=== PATIENT | female | born 1970 | race African-American/Black ===

== ENCOUNTER 2016-10-22 08:45 | Emergency (ER) | payer OTHER ==
[~2016-10-22] VITALS: Ht 167.6 cm; Wt 81.7 kg
--- NOTE | ~2016-10-22 | EKG ---
[place] [address] [facility] [place] [address] ELECTROCARDIOGRAM REPORT Name: SIDDHARTH LORA Room #: DEP [facility]#: [id number] Admission: 10/22/16 Attend Phys: Discharge: 10/22/16 Date of : 70 Report #: [id number] THIS REPORT FOR: //name// [facility] ED Test Date: 2016-10-22 Test Time: 09:46:41 Pat Name: SIDDHARTH LORA Department: Room: Gender: F Cloth Finishing Range Tender: Blue HINOJOSA : 1970 Requested By: Ramesh Leong Order Number: [id number] MD: Hal Barker Measurements Intervals [place] Rate: 70 P: 62 RI: 200 QRS: 21 QRSD: 93 T: 37 QT: 447 QTc: 483 Interpretive Statements Sinus rhythm Consider left ventricular hypertrophy No previous ECG available for comparison Electronically Signed On 10-22-2016 14:57:56 ASSEMBLY MANAGER by Hal Barker [email or web address] <ELECTRONICALLY SIGNED> By: Hal Barker MD 10/22/16 1457 0946 5 Hal Barker MD /LIZ
[~2016-10-22 08:45] MED LIST: ATORVASTATIN; BENTYL10 MG PO; CITRATE OF MAG296 ML PO; CLONIDINE HCL0.2 M2 GT; COLACE100 MG PO; FLEXERIL PO; FUROSEMIDE; HYDROCHLOROTHIA25 M1 PO; IBUPROFEN 600600 M1 PO; IBUPROFEN 800800 MG PO; LEVOTHROID300 MCG PO; MEDROLDOSEPACK PO; MIRALAX17 GM PO; NAPROSYN500 MG PO; NORCO 5-325 TA1 EACH PO; VICODIN 5-5001 EACH PO
[2016-10-22 09:35] LABS: ABSOLUTE NEUTROPHILS 3.3 thou/uL (1.4-8.2); BASOPHILS 1.1 % (0.0-2.0); EOSINOPHILS 2.9 % (0.0-3.0); HEMATOCRIT 39.1 % (37.0-47.0); HEMOGLOBIN 13.8 gm/dL (12.0-15.0); LYMPHOCYTES 33.5 % (24.0-44.0); MCH 32.6 pg (26.0-34.0); MCHC 35.3 % (28.0-37.0); MCV 92.4 fL (80.0-100.0); PLATELET COUNT 193 thou/uL (150-400); POLYS 51.5 % (36.0-66.0); RBC 4.23 mil/uL (4.20-5.00); RDW 14.4 % (10.5-14.5); WBC 6.4 thou/uL (4.0-11.0)
[2016-10-22 09:36] LABS: MANUAL DIFF NO
[2016-10-22 09:56] LABS: CALCIUM 9.1 mg/dL (8.5-10.1); CREATININE 0.9 mg/dL (0.6-1.3)
[2016-10-22 10:08] LABS: URINE BILIRUBIN NEGATIVE (Negative); URINE BLOOD 1+ (Negative); URINE COLOR YELLOW; URINE GLUCOSE-RANDOM* NEGATIVE (Negative); URINE KETONES NEGATIVE (Negative); URINE NITRITE NEGATIVE (Negative); URINE PROTEIN (DIPSTICK) NEGATIVE (Negative); URINE SPECIFIC GRAVITY 1.015 (1.003-1.035); URINE UROBILINOGEN 0.2 E.U./dl (0.2-1.0)
[2016-10-22 10:32] LABS: BACTERIA 1-9 Few /HPF (None Seen); CASTS None Seen /LPF (None Seen); CRYSTALS None Seen /LPF (None Seen); SQUAMOUS 0-3 Few /LPF (0-3); URINE RBC 0-2 Rare /HPF (0-2); URINE WBC 0-5 Rare /HPF (0-5)
[2016-10-22] MEDS ORDERED: SYNTHROID300 MCG PO (11:15)
[2016-10-22] MEDS ORDERED: LASIX 20 MG TAB20 MG PO (11:15)
[2016-10-22] MEDS ORDERED: COLACE100 MG PO (11:15)
[2016-10-22] MEDS ORDERED: HYDROCHLOROTH12.5 M1 PO (11:15)
[2016-10-22] MEDS ORDERED: NAPROSYN500 MG PO (11:15)
[2016-10-22 11:36] VITALS: BP 178/100
[2016-11-28] MEDS ORDERED: NOHOMEMEDICATIONS (14:52)
[2016-11-30] MEDS ORDERED: COREG6.25 MG PO (10:08)
[2016-11-30] MEDS ORDERED: KLOR-CON M2020 MEQ PO (10:08)
[2016-11-30] MEDS ORDERED: EFFIENT10 MG PO (10:08)
[2016-11-30] MEDS ORDERED: LIPITOR40 MG PO (10:08)
[2016-11-30] MEDS ORDERED: BAYER CHEWABLE81 MG PO (10:08)
[2016-11-30] MEDS ORDERED: COZAAR 50 MG TA50 MG PO (10:08)
[2016-11-30] MEDS ORDERED: CARVEDILOL12.5 MG PO (10:16)
[2016-12-05] MEDS ORDERED: TRAMADOL 50 MG50 MG PO (21:15)
[2016-12-05] MEDS ORDERED: POTASSIUM20 PO (21:15)
[2016-12-05] MEDS ORDERED: PRILOSEC 20 MG20 MG PO (21:15)
[2016-12-05] MEDS ORDERED: ZOFRAN ODT4 MG DISSOLVE (21:15)
[2016-12-08] MEDS ORDERED: PHENERGAN 25 MG25 M1 PO (17:37)
[2016-12-08] MEDS ORDERED: PROMS25 WY RECTAL (17:37)
[2016-12-08] MEDS ORDERED: PROTONIX40 MG PO (17:37)
== END 2016-10-22 11:40 | disposition home or self-care (01) ==
LOC: ER 08:45
PROVIDERS: Emergency Medicine
DX: R10.9 Unspecified abdominal pain (principal); G89.29 Other chronic pain; E03.9 Hypothyroidism, unspecified; I11.0 Hypertensive heart disease with heart failure; I50.30 Unspecified diastolic (congestive) heart failure; M19.90 Unspecified osteoarthritis, unspecified site; Z86.73 Personal history of transient ischemic attack (TIA), and cerebral infarction without residual deficits; Z90.710 Acquired absence of both cervix and uterus

== ENCOUNTER 2017-08-13 05:17 | Day surgery (SDC) | payer OTHER ==
[~2017-08-13] VITALS: Ht 170.2 cm; Wt 82.1 kg
--- NOTE | ~2017-08-13 | O ---
[facility] [place] [address] OPERATIVE REPORT Name: SIDDHARTH LORA Room #: 412-P [facility]..#: [id number] Admission: 08/13/17 Attend Phys: uRben Veliz MD Discharge: Date of : 70 Report #: [id number] THIS REPORT FOR: //name// CC: [facility] physician/PCP Wendi Veliz DATE OF SERVICE: 08/13/[address] Ruben Veliz and Dr. Wendi Shaffer. PREOPERATIVE DIAGNOSES: Cholelithiasis, cholecystitis, biliary colic. POSTOPERATIVE DIAGNOSES: Cholelithiasis, cholecystitis, biliary colic. PROCEDURE: Laparoscopic cholecystectomy. SURGEON: Ruben Veliz MD. MOISTURE MACHINE TENDER: Jesusita Marroquin RN. ANESTHESIA: General. DESCRIPTION OF PROCEDURE: The patient was brought to the operating room and placed on operative table in the supine position. Sequential compression devices were in place for DVT prophylaxis. She received an appropriate preoperative dose of Mefoxin. The patient underwent general endotracheal anesthesia and the abdomen was then prepped and draped in a sterile fashion. Skin and subcutaneous tissue around the umbilicus was then infiltrated with 0.5% Marcaine. Infraumbilical skin incision was then performed using #11 scalpel blade. Hemostasis obtained using electrocautery. Dissection was carried down through subcutaneous tissue of the fascia, which was then grasped between 2 Tim clamps and incised with the curved Hamilton scissors. Peritoneum was entered and pursestring suture of 0 Vicryl was then placed in the fascia. A 12-mm disposable Denilson port was inserted through the opening and held into place with the balloon port and the pursestring suture. Pneumoperitoneum obtained to a level of 10-15 mmHg. Laparoscope was inserted through this port and exploration was performed, which revealed numerous adhesions overlying the dome of the liver. These adhesions were carefully lysed using the laparoscopic scissors as well as the hook electrocautery. After lysing numerous adhesions over the liver, the gallbladder was then grasped and retracted superiorly and adhesions to the gallbladder were carefully dissected free using the [place] dissector. The cystic duct and artery were then dissected free. Cystic artery was then doubly clipped on each side and divided with the scissors. The cystic common bile duct junction was clearly identified and the cystic duct was then triply clipped on the common bile duct side and doubly clipped on the gallbladder side [address] [address] OPERATIVE REPORT Name: SIDDHARTH LORA Room #: 412-P [facility]#: [id number] Admission: 08/13/17 Attend Phys: Ruben Veliz MD Discharge: Date of : 70 Report #: [id number] and divided with the scissors. Gallbladder was then dissected free from the bed using the hook electrocautery. Prior to completing the dissection, the gallbladder was retracted superiorly and the bed inspected for hemostasis, which was obtained using electrocautery and found to be intact. Gallbladder was then transected and brought out through the periumbilical port and sent that specimen to pathology. The port was then returned to the abdomen. The area was then copiously irrigated with warm saline solution, which was suctioned free and hemostasis was checked and found to be intact. The ports were all removed under direct visualization, hemostasis intact at each port site. Pneumoperitoneum was released and the periumbilical port was also removed under direct visualization. Hemostasis intact at that port site as well. The periumbilical fascia was then closed using the 0 Vicryl pursestring suture. The upper midline fascia was then closed using a isseed-if-veefb 0 Vicryl suture. Skin was then closed using interrupted vertical mattress 5-0 nylon sutures and the wound was dressed with Band-Aids. The patient was then awakened from the general endotracheal anesthesia, extubated, and taken to recovery room in good condition. Estimated blood loss was approximately 5-10 mL and the patient tolerated procedure well. All sponge, lap and instrument counts correct times 2. <ELECTRONICALLY SIGNED> By: Ruben Veliz MD 08/13/17 1326 1002 1023 Ruben Veliz MD /nt
--- NOTE | ~2017-08-13 | S ---
[facility] [place] [address] SURGICAL PATH RPT PROCEDURE Name: TAMMY LORA Room #: DEP [facility] M.R.#: [id number] Admission: 08/13/17 Date of : 70 Discharge: 08/13/17 Report #: [id number] Path Case #: [id number] PATHOLOGY REPORT COLLECTION DATE: 08/13/2017 RECEIVED DATE: 08/13/2017 SUBMITTING PHYS: Dr. Ruben Veliz OTHER PHYS: SPECIMEN(S) RECEIVED: A.Gallbladder * * * * * * * * * * * * FINAL DIAGNOSIS: Gallbladder, cholecystectomy: - Mild chronic cholecystitis. - Cholelithiasis. (IUV:pit; 08/14/2017) PATHOLOGIST: Oliva Urrutia M.D. REPORT ELECTRONICALLY SIGNED BY: Oliva Urrutia M.D. DATE/TIME: 08/14/2017 15:37 * * * * * * * * * * * * GROSS PATHOLOGY: Received in formalin labeled "Tammy Lora gallbladder," is a 7.9 x 2.4 x 1.0 cm, previously opened gallbladder with light maki to bluish, wrinkled, and slightly vascular serosal surfaces. Opening the gallbladder reveals light green, grainy mucosa and an average wall thickness of 0.2 cm. Calculi are present, measuring 0.4-0.7 cm in maximum dimension, possessing a dark black and granular appearance, and feeling friable to the touch. No masses are noted grossly. Auto Finance Sales Rep sections from the body and fundus are submitted along with the proximal margin in cassette A1. (TSD; 08/13/2017) CLINICAL HISTORY: Gallstones INITIAL CPT CODE(S): A; 19207 Professional services performed by [facility] at [facility] [address] , [place] [address] [facility] [address] [place] [address] SURGICAL PATH RPT PROCEDURE Name: TAMMY LORA Room #: DEP [facility].#: [id number] Admission: 08/13/17 Date of : 70 Discharge: 08/13/17 Report #: [id number] Path Case #: [id number] Technical services performed by [facility] at [address] [place] [address], [facility] [address] [address]. [facility] [address] [place] [address] PHONE: [phone] DIRECTOR: Landen Carroll M.D. * * * END OF REPORT * * *
[~2017-08-13 05:17] MED LIST changes: +ACETAMINOPHEN-1 EAC1 PO; +ASPIR 8181 MG PO; +BAYER CHEWABLE81 MG PO; +CARVEDILOL12.5 MG PO; +CELEXA40 MG PO; +COREG6.25 MG PO; +COZAAR 50 MG TA50 MG PO; +DUONEB 2.5-0.5 M3 ML INH; +EFFIENT10 MG PO; +FLONASE 0.05%50 MCG NASAL; +GABAPENTIN800 M1 PO; +HYDROCHLOROTH12.5 M1 PO; +KLOR-CON M2020 MEQ PO; +LASIX 20 MG TAB20 MG PO; +LINZESS145 MCG PO; +LIPITOR 20 MG T20 M1 PO; +LIPITOR40 MG PO; +LOSARTAN-HCTZ1 EACH PO; +MIRALAX17 G1 PO; +MOBIC15 MG PO; +NOHOMEMEDICATIONS; +NORVASC5 MG PO; +OMEPRAZOLE 20 M20 MG PO; +PHENERGAN 25 MG25 M1 PO; +PLAVIX 75 MG TA75 M1 PO; +POTASSIUM20 PO; +PRILOSEC 20 MG20 MG PO; +PROMS25 WY RECTAL; +PROTONIX40 MG PO; +SYNTHROID25 MCG PO; +SYNTHROID300 MCG PO; +TRAMADOL 50 MG50 MG PO; +VENTOLIN HFA 1818 GM INH; +XANAX 0.5 MG0.5 MG PO; +ZOFRAN ODT4 MG DISSOLVE; +ZYRTEC10 M5 PO
[2017-08-13 07:19] LABS: CALCIUM 9.4 mg/dL (8.5-10.1); CREATININE 0.9 mg/dL (0.6-1.0); POTASSIUM 3.5 mmol/L (3.5-5.1)
[2017-08-13 08:25] VITALS: BP 160/97
[2017-08-13] MEDS ORDERED: HYDROCODON-ACE1 EAC7 PO (10:09)
[2017-08-13 12:00] VITALS: BP 155/91
[2017-08-13 12:11] VITALS: BP 160/97
[2017-08-13 12:30] VITALS: BP 155/89
[2017-08-13 14:00] VITALS: BP 149/83
== END 2017-08-13 16:04 | disposition home or self-care (01) ==
LOC: OR 05:17 → 4N 11:46 → OR 13:40 → ENTRNSPT 15:45 → EDTRNSPTSTS 15:48 → OR 16:04
PROVIDERS: Student in an Organized Health Care Education/Training Program
DX: K80.64 Calculus of gallbladder and bile duct with chronic cholecystitis without obstruction (principal); I11.0 Hypertensive heart disease with heart failure; I50.9 Heart failure, unspecified; I25.2 Old myocardial infarction; J44.9 Chronic obstructive pulmonary disease, unspecified; E78.00 Pure hypercholesterolemia, unspecified; E03.9 Hypothyroidism, unspecified; M19.90 Unspecified osteoarthritis, unspecified site; K21.9 Gastro-esophageal reflux disease without esophagitis; F32.89 Other specified depressive episodes; F41.8 Other specified anxiety disorders; Z95.5 Presence of coronary angioplasty implant and graft; Z90.710 Acquired absence of both cervix and uterus; Z98.890 Other specified postprocedural states; Z86.73 Personal history of transient ischemic attack (TIA), and cerebral infarction without residual deficits; Z88.6 Allergy status to analgesic agent; Z79.899 Other long term (current) drug therapy; Z79.82 Long term (current) use of aspirin
CPT/HCPCS: 10091; 50010; 50101; 50411; 50555; 50558; 51474; 51489; 52266; 53314; 56462; 56524; 56528; 62110; 62900; 70005

== ENCOUNTER 2018-01-12 01:34 | Inpatient (IN) | payer OTHER ==
[2018-01-12] VITALS (13 sets, daily range): BP systolic 134–186; BP diastolic 85–124
[~2018-01-12] VITALS: Ht 167.6 cm; Wt 79.7 kg
--- NOTE | ~2018-01-12 | EKG ---
[place] [address] [facility] [place] [address] ELECTROCARDIOGRAM REPORT Name: SIDDHARTH LORA Room #: 205- ADM IN M.R.#: [id number] Admission: 01/12/18 Attend Phys: Earle Cortes MD Discharge: Date of : 70 Report #: [id number] THIS REPORT FOR: //name// [facility] Test Date: 2018-01-12 Test Time: 05:48:55 Pat Name: SIDDHARTH LORA Department: Room: 205 Gender: F Wire Mesh Filter Fabricator: ANIL : 1970 Requested By: Sherin Naranjo Order Number: [id number] MD: Ish Ryder Measurements Intervals [place] Rate: 71 P: 66 TN: 204 QRS: 17 QRSD: 120 T: 14 QT: 423 QTc: 460 Interpretive Statements Sinus rhythm Borderline prolonged [place] interval Nonspecific ST segment abnormality Baseline wander in lead(s) V2 Compared to ECG 12/08/2016 16:36:08 No significant change was found Electronically Signed On 01-12-2018 7:59:12 CDT by Ish Ryder [email or web address] <ELECTRONICALLY SIGNED> By: Ish Ryder MD, [facility] 01/12/18 0759 0548 0548 Ish Ryder MD, [facility] /EPI
--- NOTE | ~2018-01-12 | CATHLAB ---
[facility] [place] [address] INVASIVE PROCEDURE REPORT Name: SIDDHARTH LORA Room #: 205-P ADM IN .R.#: [id number] Admission: 01/12/18 Attend Phys: Earle Cortes MD Discharge: Date of : 70 Date of Service: 01/12/18 1430 Report #: [id number] THIS REPORT FOR: //name// APPROVED REPORT Study performed: 01/12/2018 10:52:45 Patient Details Patient Status: In-Patient Room #: The patient is a 47 year-old female Event Personnel Boris Alvarez Sausage Inspector, Kobe Santacruz RN, Shelly Torres RTR, Sheila Haines David Monitor Procedures Performed left heart cath Indication Dyspnea, Cardiomyopathy, Chest pain Risk Factors Hypercholesterolemia, Coronary Artery DiseaseHypertension Previous Procedures/Diagnoses Previous PCI, Previous CHF Procedure Narrative A 4 fr sheath sheath was inserted into the . Coronary angiography was performed using coronary diagnostic catheters. The right coronary system was accessed and visualized with a 3DRC catheter. The left coronary system was accessed and visualized with a JL4 catheter. The left ventricle was accessed and visualized with a PIGTAIL catheter. Left ventricular/Aortic Valve gradient assessed via catheter pullback. Left ventriculogram was performed in 30 degree projection. Hemostasis was obtained with manual pressure following sheath removal without any complications. There was no hematoma. Intraoperative Conscious Sedation Sedation start time: 12.46 Case end Time: 13.02 Fentanyl 50.0 mcg Versed 1.5 mg Fluoro Time: 5.46 minutes Dose: 636 mGy [facility] [address] [place] [address] INVASIVE PROCEDURE REPORT Name: SIDDHARTH LORA [place] Room #: 205-P [facility] IN [facility]#: [id number] Admission: 01/12/18 Attend Phys: Earle Cortes MD Discharge: Date of : 70 Date of Service: 01/12/18 1430 Report #: [id number] Contrast Type and Amount: OMNI 160CC Coronary Angiography The patient's coronary anatomy is right dominant. Diagnostic Cath Left Main Patent vessel, with no flow-limiting lesions. LAD Moderate to large size caliber vessel, traveling down the anterior wall and wrapping around the apex, terminating in the distal inferior wall. There is a stent in the proximal/mid LAD, patent with mild restenosis. Within the mid segment of the LAD there is a mild stenotic lesion, 30%. Diagonal 1 Small-caliber vessel, with moderate disease at the proximal segment. Diagonal 2 Small-caliber vessel, with a moderate stenosis at the proximal segment. Circumflex Moderate size caliber vessel, supplies 2 obtuse marginal arteries. OM1 Patent vessel with mild disease in the proximal segment. OM2 Patent vessel with mild disease in the proximal segment. Right Coronary Dominant vessel with moderate disease in the mid segment, 40%. R PDA Small-caliber vessel, no flow-limiting lesions. RPLV Small-caliber vessel, with mild diffuse disease in the mid segment. Left Ventriculography The left ventricle is mildly dilated in size with decreased contractility. The left ventricular ejection fraction is estimated to be 35%. Hemodynamics The aortic pressure is 171/74 mmHg with a mean of 93 mmHg. The left ventricular pressure is 171/10 mmHg with a mean of mmHg. The left ventricular end diastolic pressure is 36 mmHg. There was no gradient across the aortic valve upon pullback. Conclusion 1. Patent stent in the proximal/mid LAD segment. 2. Right dominant system. 3. Mild to moderate disease as described above. [facility] [address] [place] [address] INVASIVE PROCEDURE REPORT Name: SIDDHARTH LORA Room #: 205-P [facility] IN .R.#: [id number] Admission: 01/12/18 Attend Phys: Earle Cortes MD Discharge: Date of : 70 Date of Service: 01/12/18 1430 Report #: [id number] 4. Nonischemic cardiomyopathy. 4. Recommend medical therapy. <ELECTRONICALLY SIGNED> By: Boris Alvarez MD 01/12/18 1430 143 1430 Boris Alvarez MD /INF
--- NOTE | ~2018-01-12 | EKG ---
[place] [address] [employer] [place] [address] ELECTROCARDIOGRAM REPORT Name: SIDDHARTH LORA Room #: 205-P ADM IN M.R.#: [id number] Admission: 01/12/18 Attend Phys: Earle Cortes MD Discharge: Date of : 70 Report #: [id number] THIS REPORT FOR: //name// [facility] ED Test Date: 2018-01-12 Test Time: 01:41:05 Pat Name: SIDDHARTH LORA Department: Room: 205 Gender: F Hat Body Inspector: [facility] : 1970 Requested By: Amy Hernandez Order Number: [id number] MD: Ish Ryder Measurements Intervals [place] Rate: 69 P: 58 [place]: 216 QRS: 4 QRSD: 83 T: 21 QT: 520 QTc: 557 Interpretive Statements Sinus rhythm Prolonged [place] interval Probable left atrial enlargement LVH with secondary repolarization abnormality Anterior Q waves, possibly due to LVH Prolonged QT interval Compared to ECG 12/08/2016 16:36:08 First degree AV block now present ST and T wave abnormality is less prominent Electronically Signed On 01-12-2018 7:56:37 CDT by Ish Ryder [email or web address] <ELECTRONICALLY SIGNED> By: Ish Ryder MD, [facility] 01/12/18 0756 0141 0141 Ish Ryder MD, [facility] /EPI
--- NOTE | ~2018-01-12 | 2DMMODE ---
[facility] [address] [place] [address] 2 D/M-MODE ECHOCARDIOGRAM Name: SIDDHARTH LORA R Room #: 205-P ADM IN M.R.#: [id number] Admission: 01/12/18 Attend Phys: Earle Cortes MD Discharge: Date of : 70 Date of Service: 01/12/18 1141 Report #: [id number] THIS REPORT FOR: //name// APPROVED REPORT Study performed: 01/12/2018 10:40:39 EXAM: Comprehensive 2D, Doppler, and color-flow Echocardiogram Patient Location: Echo lab Room #: [facility] Status: routine BSA: 1.91 HR: 57 bpm BP: 140/87 mmHg Rhythm: NSR Other Information Study Quality: Good Indications Chest pain, short of breath. Hx: cardiomyopathy, CAD, stent, HTN, HLP 2D Dimensions RVDd: 33.41 mm LVEF(%): 21.20 (>50%) IVSd: 12.04 (7-11mm) LVOT Diam: 19.89 (18-24mm) LVDd: 58.38 mm PWd: 11.57 (7-11mm) Ascending Ao: 29.96 (22-36mm) LVDs: 52.64 (25-40mm) Aortic Root: 29.50 mm Cano's LVEF: 21.20 % Volumes Left Atrial Volume (Systole) Single Plane 4CH: 64.11 mL Single Plane 2CH: 65.53 mL LA ESV Index: 37.00 mL/m2 Aortic Valve AoV Peak Osvaldo.: 1.33 m/s AO Peak Gr.: 7.05 mmHg LVOT Max P.81 mmHg LVOT Max V: 0.84 m/s ALANA Vmax: 1.96 cm2 Mitral Valve E/A Ratio: 1.3 [facility] [employer] [place] [address] 2 D/M-MODE ECHOCARDIOGRAM Name: SIDDHARTH LORA [place] Room #: 205-P [facility] IN M.R.#: [id number] Admission: 01/12/18 Attend Phys: Earle Cortes MD Discharge: Date of : 70 Date of Service: 01/12/18 1141 Report #: [id number] MV Decel. Time: 206.44 ms MV E Max Osvaldo.: 0.77 m/s MV A Osvaldo.: 0.60 m/s MV PHT: 59.87 ms IVRT: 147.64 ms Pulmonary Valve PV Peak Osvaldo.: 0.78 m/s PV Peak Gr.: 2.44 mmHg Pulmonary Vein P Vein S: 0.35 m/s P Vein D: 0.28 m/s P Vein S/D Ratio: 1.25 Tricuspid Valve TR Peak Osvaldo.: 2.01 m/s RAP Estimate: 5.00 mmHg TR Peak Gr.: 16.18 mmHg PA Pressure: 21.00 mmHg Left Ventricle The left ventricle is normal size. Mild concentric left ventricular hypertrophy. Left ventricular systolic function is moderately decreased. LVEF is 35-40%. Moderate diastolic dysfunction is present (pseudonormal filling). Right Ventricle The right ventricle is normal size. Right ventricle is mildly hypokinetic. Atria Left atrium is mildly dilated. The right atrium size is normal. Aortic Valve The aortic valve is normal in structure. Trace aortic regurgitation. There is no aortic valvular stenosis. Mitral Valve The mitral valve is normal in structure. Mild to moderate mitral regurgitation. Tricuspid Valve The tricuspid valve is normal in structure. Mild tricuspid regurgitation. Estimated PAP is 20-25mmHg. Pulmonic Valve [address] [address] 2 D/M-MODE ECHOCARDIOGRAM Name: SIDDHARTH LORA Room #: 205-P [facility] IN .R.#: [id number] Admission: 01/12/18 Attend Phys: Earle Cortes MD Discharge: Date of : 70 Date of Service: 01/12/18 1141 Report #: [id number] The pulmonary valve is normal in structure. Mild pulmonic regurgitation. Great Vessels The aortic root is normal in size. The ascending aorta is normal in size. IVC is normal in size and collapses >50% with inspiration. Pericardium There is no pericardial effusion. <Conclusion> The left ventricle is normal size. Mild concentric left ventricular hypertrophy. Left ventricular systolic function is moderately decreased. Moderate diastolic dysfunction is present (pseudonormal filling). The right ventricle is normal size. Left atrium is mildly dilated. There is no aortic valvular stenosis. Mild to moderate mitral regurgitation. Mild tricuspid regurgitation. Estimated PAP is 20-25mmHg. <ELECTRONICALLY SIGNED> By: Borsi Alvarez MD 01/12/18 1141 1141 1141 Boris Alvarez MD /INF
[~2018-01-12 01:34] MED LIST changes: +HYDROCODON-ACE1 EAC7 PO
[2018-01-12 02:03] LABS: ABSOLUTE NEUTROPHILS 4.6 thou/uL (1.4-8.2); EOSINOPHILS 1.4 % (0.0-3.0); HEMATOCRIT 39.8 % (37.0-47.0); HEMOGLOBIN 13.5 gm/dL (12.0-15.0); LYMPHOCYTES 39.4 % (24.0-44.0); MCH 31.7 pg (26.0-34.0); MCHC 33.8 g/dL (28.0-37.0); MCV 93.6 fL (80.0-100.0); PLATELET COUNT 197 thou/uL (150-400); POLYS 51.2 % (36.0-66.0); RBC 4.25 mil/uL (4.20-5.00); WBC 8.9 thou/uL (4.0-11.0)
[2018-01-12 02:11] LABS: CREATININE 0.9 mg/dL (0.6-1.0); POTASSIUM 3.2 mmol/L (3.5-5.1)
[2018-01-12 02:19] LABS: APTT 31.1 Seconds (24.5-32.8); INR 1.1; PROTIME 11.3 Seconds (9.3-11.4); TROPONIN-I 0.19 ng/mL (<0.06)
[2018-01-12 03:29] LABS: CHOLESTEROL 204 mg/dL (<200); HDL CHOLESTEROL 54 mg/dL (>40); LDL CHOLESTEROL 120 mg/dL (<100); MAGNESIUM 2.3 mg/dL (1.8-2.4); TC:HDL 3.8 Ratio (Not establshd); TRIGLYCERIDE 154 mg/dL (<150); VLDL 31 mg/dL (<40)
[2018-01-13] VITALS: BP 174/109
[2018-01-13 01:27] VITALS: BP 143/78
[2018-01-13 04:00] VITALS: BP 156/103
[2018-01-13 04:22] LABS: HEMATOCRIT 38.6 % (37.0-47.0); MCH 31.3 pg (26.0-34.0); MCHC 33.7 g/dL (28.0-37.0); MCV 92.8 fL (80.0-100.0); RBC 4.16 mil/uL (4.20-5.00); RDW 13.7 % (10.5-14.5); WBC 5.1 thou/uL (4.0-11.0)
[2018-01-13 04:32] LABS: CALCIUM 9.1 mg/dL (8.5-10.1); CREATININE 0.8 mg/dL (0.6-1.0); POTASSIUM 3.8 mmol/L (3.5-5.1)
[2018-01-13 04:40] VITALS: BP 156/103
[2018-01-13 07:20] VITALS: BP 148/87
[2018-01-13 10:20] VITALS: BP 148/87
== END 2018-01-13 12:00 | disposition home or self-care (01) | DRG 281 ==
LOC: ER 01:34 → EROBS 02:38 → 2N 03:37 → ENTRNSPT 01-13 11:54 → EDTRNSPTSTS 01-13 11:57 → 2N 01-13 12:00
PROVIDERS: Emergency Medicine; Internal Medicine Cardiovascular Disease; Nurse Practitioner Acute Care
PROC: B2151ZZ Fluoroscopy of Left Heart using Low Osmolar Contrast (ICD-10-PCS; principal; 2018-01-12)
PROC: B2111ZZ Fluoroscopy of Multiple Coronary Arteries using Low Osmolar Contrast (ICD-10-PCS; principal; 2018-01-12)
PROC: 4A023N7 Measurement of Cardiac Sampling and Pressure, Left Heart, Percutaneous Approach (ICD-10-PCS; principal; 2018-01-12)
DX: I21.4 Non-ST elevation (NSTEMI) myocardial infarction (principal); I69.354 Hemiplegia and hemiparesis following cerebral infarction affecting left non-dominant side; I42.9 Cardiomyopathy, unspecified; I24.9 Acute ischemic heart disease, unspecified; E03.9 Hypothyroidism, unspecified; M19.90 Unspecified osteoarthritis, unspecified site; I50.9 Heart failure, unspecified; I11.0 Hypertensive heart disease with heart failure; K21.9 Gastro-esophageal reflux disease without esophagitis; F41.9 Anxiety disorder, unspecified; F32.9 Major depressive disorder, single episode, unspecified; E78.00 Pure hypercholesterolemia, unspecified; J45.909 Unspecified asthma, uncomplicated; E87.6 Hypokalemia; I25.10 Atherosclerotic heart disease of native coronary artery without angina pectoris; Z82.49 Family history of ischemic heart disease and other diseases of the circulatory system; Z95.5 Presence of coronary angioplasty implant and graft; Z79.899 Other long term (current) drug therapy; Z79.82 Long term (current) use of aspirin; Z88.5 Allergy status to narcotic agent; Z88.8 Allergy status to other drugs, medicaments and biological substances; Z80.6 Family history of leukemia; Z90.49 Acquired absence of other specified parts of digestive tract; Z91.14 Patient's other noncompliance with medication regimen
CPT/HCPCS: 10081

== ENCOUNTER 2018-05-03 16:35 | Emergency (ER) | payer OTHER ==
[~2018-05-03] VITALS: Ht 167.6 cm; Wt 80.7 kg
[2018-05-03] MEDS ORDERED: TRAMADOL 50 MG50 MG PO (18:28)
[2018-05-03 18:41] VITALS: BP 121/72
== END 2018-05-03 18:42 | disposition home or self-care (01) ==
LOC: ER 16:35
DX: S86.912A Strain of unspecified muscle(s) and tendon(s) at lower leg level, left leg, initial encounter (principal); S50.02XA Contusion of left elbow, initial encounter; S70.02XA Contusion of left hip, initial encounter; S20.212A Contusion of left front wall of thorax, initial encounter; E03.9 Hypothyroidism, unspecified; I11.0 Hypertensive heart disease with heart failure; I50.9 Heart failure, unspecified; M19.90 Unspecified osteoarthritis, unspecified site; K21.9 Gastro-esophageal reflux disease without esophagitis; F41.9 Anxiety disorder, unspecified; F32.9 Major depressive disorder, single episode, unspecified; E78.00 Pure hypercholesterolemia, unspecified; J45.909 Unspecified asthma, uncomplicated; I25.2 Old myocardial infarction; Z90.49 Acquired absence of other specified parts of digestive tract; Z86.73 Personal history of transient ischemic attack (TIA), and cerebral infarction without residual deficits; Z88.5 Allergy status to narcotic agent; W01.0XXA Fall on same level from slipping, tripping and stumbling without subsequent striking against object, initial encounter; Y93.89 Activity, other specified; Y92.89 Other specified places as the place of occurrence of the external cause; Y99.8 Other external cause status

== ENCOUNTER 2019-03-07 02:29 | Emergency (ER) | payer OTHER ==
[~2019-03-07] VITALS: Ht 167.6 cm; Wt 80.7 kg
[2019-03-07 03:32] LABS: ABSOLUTE NEUTROPHILS 2.7 thou/uL (1.4-8.2); EOSINOPHILS 2.5 % (0.0-3.0); HEMATOCRIT 39.2 % (37.0-47.0); HEMOGLOBIN 13.2 gm/dL (12.0-15.0); LYMPHOCYTES 38.4 % (24.0-44.0); MCHC 33.7 g/dL (28.0-37.0); MCV 91.9 fL (80.0-100.0); PLATELET COUNT 184 thou/uL (150-400); POLYS 48.1 % (36.0-66.0); RBC 4.26 mil/uL (4.20-5.00); RDW 13.7 % (10.5-14.5); WBC 5.7 thou/uL (4.0-11.0)
[2019-03-07 03:44] LABS: CALCIUM 10.3 mg/dL (8.5-10.1); CREATININE 0.9 mg/dL (0.6-1.0); POTASSIUM 3.3 mmol/L (3.5-5.1)
[2019-03-07 03:53] LABS: TROPONIN-I 0.14 ng/mL (<0.06)
[2019-03-07 06:27] VITALS: BP 158/95
--- NOTE | 2019-03-07 22:41 | EKG ---
[address] [address] ELECTROCARDIOGRAM REPORT Name: SIDDHARTH LORA [id number] ������������������ Admission: 03/07/19 ������������������ Attend Phys: Discharge: 03/07/19 ������������������ Date of : 70 Report #: [id number] ����������������������������������������������������������������� [id number] THIS REPORT FOR: //name// [facility] ED Test Date: 2019-03-07 Test Time: 02:32:20 Pat Name: SIDDHARTH LORA Department: Room: Gender: F Environmental Tech: SAUL : 1970 Requested By: Nery Green Order Number: [id number] MD: Hal Barker Measurements Intervals [place] Rate: 67 P: 81 MA: 199 QRS: 19 QRSD: 92 T: 18 QT: 419 QTc: 443 Interpretive Statements Sinus rhythm Probable LVH with secondary repol abnrm Baseline wander in lead(s) V6 Compared to ECG 01/12/2018 05:48:55 ST (T wave) deviation no longer present Electronically Signed On 03-07-2019 22:41:03 CDT by Hal Barker [email or web address] ��������������������������������������������� <ELECTRONICALLY SIGNED> ���������������������������������������� By: Hal Barker MD ��������������������������������������������� 03/07/19 2241 0232 0232 Hal Barker MD /EPI
== END 2019-03-07 06:31 | disposition home or self-care (01) ==
LOC: ER 02:29
PROVIDERS: Emergency Medicine
DX: R07.89 Other chest pain (principal); E03.9 Hypothyroidism, unspecified; I11.0 Hypertensive heart disease with heart failure; I50.9 Heart failure, unspecified; M19.90 Unspecified osteoarthritis, unspecified site; K21.9 Gastro-esophageal reflux disease without esophagitis; F41.9 Anxiety disorder, unspecified; F32.9 Major depressive disorder, single episode, unspecified; E78.00 Pure hypercholesterolemia, unspecified; J45.909 Unspecified asthma, uncomplicated; Z88.5 Allergy status to narcotic agent

== ENCOUNTER 2019-11-28 21:09 | Emergency (ER) | payer OTHER ==
[~2019-11-28] VITALS: Ht 170.2 cm; Wt 83.9 kg
[2019-11-28 21:45] LABS: ABSOLUTE NEUTROPHILS 3.2 thou/uL (1.4-8.2); EOSINOPHILS 2.2 % (0.0-3.0); HEMATOCRIT 39.4 % (37.0-47.0); LYMPHOCYTES 40.1 % (24.0-44.0); MCH 30.8 pg (26.0-34.0); MCV 93.3 fL (80.0-100.0); MONOCYTES 9.4 % (1.0-8.0); PLATELET COUNT 247 thou/uL (150-400); POLYS 47.3 % (36.0-66.0); RBC 4.22 mil/uL (4.20-5.00); RDW 14.1 % (10.5-14.5); WBC 6.9 thou/uL (4.0-11.0)
[2019-11-28 21:51] LABS: CALCIUM 9.1 mg/dL (8.5-10.1); CREATININE 0.9 mg/dL (0.6-1.0); POTASSIUM 3.2 mmol/L (3.5-5.1)
[2019-11-28 21:59] LABS: TROPONIN-I 0.31 ng/mL (<0.06)
[2019-11-29 00:34] VITALS: BP 154/92
--- NOTE | 2019-12-01 12:33 | EKG ---
[facility] [place] [address] ELECTROCARDIOGRAM REPORT Name: SIDDHARTH LORA Room #: DEP [facility].#: [id number] Admission: 11/28/19 Attend Phys: Discharge: 11/29/19 Date of : 70 Report #: [id number] THIS REPORT FOR: cc: [facility] - Clinic physician unknown [facility] - Clinic physician unknown Ish Ryder MD [facility] ~ THIS REPORT FOR: //name// [facility] ED Test Date: 2019-11-28 Test Time: 21:33:24 Pat Name: SIDDHARTH LORA Department: Room: Gender: F Monument Carver: AMINA : 1970 Requested By: Johny Carpio Order Number: [id number] MD: Ish Ryder Measurements Intervals [place] Rate: 73 P: 81 IN: 212 QRS: 18 QRSD: 90 T: -6 QT: 431 QTc: 475 Interpretive Statements Sinus rhythm Borderline prolonged [place] interval LVH with secondary repolarization abnormality Compared to ECG 03/07/2019 02:32:20 No significant changes Electronically Signed On 11-29-2019 9:38:18 PUBLIC ADDRESS SYSTEM MECHANIC by Ish Ryder [email or web address] <ELECTRONICALLY SIGNED> By: Ish Ryder MD, FACC 11/29/1938 32 32 Ish Ryder MD, [facility] /EPI
== END 2019-11-29 00:35 | disposition home or self-care (01) ==
LOC: ER 21:09
PROVIDERS: Emergency Medicine
DX: M79.602 Pain in left arm (principal); R06.00 Dyspnea, unspecified; I11.0 Hypertensive heart disease with heart failure; I50.9 Heart failure, unspecified; E03.9 Hypothyroidism, unspecified; E78.00 Pure hypercholesterolemia, unspecified; J45.909 Unspecified asthma, uncomplicated; K21.9 Gastro-esophageal reflux disease without esophagitis; M19.90 Unspecified osteoarthritis, unspecified site; F41.9 Anxiety disorder, unspecified; Z86.73 Personal history of transient ischemic attack (TIA), and cerebral infarction without residual deficits; Z90.710 Acquired absence of both cervix and uterus; Z90.49 Acquired absence of other specified parts of digestive tract; Z98.51 Tubal ligation status; Z95.5 Presence of coronary angioplasty implant and graft; Z91.048 Other nonmedicinal substance allergy status; Z88.6 Allergy status to analgesic agent

== ENCOUNTER 2020-04-06 01:45 | Emergency (ER) | payer OTHER ==
[2020-04-06 13:50] LABS: CALCIUM 8.5 mg/dL (8.5-10.1); POTASSIUM 3.5 mmol/L (3.5-5.1); TOTAL BILIRUBIN 0.4 mg/dL (0.2-1.0)
[2020-04-06 13:51] LABS: ALBUMIN 3.5 g/dL (3.4-5.0); TOTAL PROTEIN 6.6 g/dL (6.4-8.2)
[2020-04-06 13:52] LABS: CREATININE 0.9 mg/dL (0.6-1.0)
[2020-04-06 14:03] LABS: TROPONIN-I 0.24 ng/mL (<0.06)
[2020-04-06 14:05] LABS: HEMATOCRIT 36.8 % (37.0-47.0); HEMOGLOBIN 12.6 gm/dL (12.0-15.0); MCH 31.7 pg (26.0-34.0); MCHC 34.2 % (28.0-37.0); MCV 92.7 fL (80.0-100.0); RBC 3.97 mil/uL (4.20-5.00)
== END 2020-04-06 03:58 | disposition left against medical advice (07) ==
LOC: ER 01:45
PROVIDERS: Emergency Medicine
DX: G89.29 Other chronic pain (principal); R07.89 Other chest pain; M19.90 Unspecified osteoarthritis, unspecified site; K21.9 Gastro-esophageal reflux disease without esophagitis; J45.909 Unspecified asthma, uncomplicated; G62.9 Polyneuropathy, unspecified; I25.2 Old myocardial infarction; I11.0 Hypertensive heart disease with heart failure; I50.9 Heart failure, unspecified; E03.9 Hypothyroidism, unspecified; Z88.5 Allergy status to narcotic agent; Z79.899 Other long term (current) drug therapy; Z79.82 Long term (current) use of aspirin; Z86.73 Personal history of transient ischemic attack (TIA), and cerebral infarction without residual deficits